=== PATIENT | female | born 1945 | race Caucasian/White ===

== ENCOUNTER → 2016-05-18 | Outpatient (CLI) | payer MEDICARE | END | disposition home or self-care (01) | LOC: PCVCCLINIC 11:37 | PROVIDERS: ATTEND Internal Medicine Cardiovascular Disease | DX: I25.10 Atherosclerotic heart disease of native coronary artery without angina pectoris (principal); E78.00 Pure hypercholesterolemia, unspecified; I10 Essential (primary) hypertension; I70.1 Atherosclerosis of renal artery | CPT/HCPCS: 80061; 93005; G0463 ==

== ENCOUNTER → 2017-01-12 | Outpatient (CLI) | payer MEDICARE ==
--- NOTE | 2017-01-12 18:38 | PCVCIMAG ---
EXAM: BILATERAL RENAL ULTRASOUND AND BILATERAL RENAL DUPLEX INDICATION: Hypertension FINDINGS: Right kidney: Length measures 9.1 cm. No hydronephrosis or extensive renal scarring. Right renal duplex: Adequate technical quality. Mild stenosis proximal renal artery stenosis. The aortic to renal artery ratio is 2.6. The renal vein is patent. Left kidney: Length measures 9.7 cm. No hydronephrosis or extensive renal scarring. 5.1 x 5.5 x 5.9 cm benign cyst mid lateral kidney. Left renal duplex: Adequate technical quality. No sonographic evidence of renal artery stenosis. The aortic to renal artery ratio is 1.7. The renal vein is patent. Bladder: No obvious abnormalities. IMPRESSION: 40-50% stenosis proximal right renal artery not felt to be critically flow-limiting. No significant left renal artery stenosis. LOC:[id number]
== END | disposition home or self-care (01) ==
LOC: PCVCIMAG 09:05
PROVIDERS: ATTEND Internal Medicine Cardiovascular Disease
DX: I70.1 Atherosclerosis of renal artery (principal); N28.1 Cyst of kidney, acquired; I25.10 Atherosclerotic heart disease of native coronary artery without angina pectoris; I10 Essential (primary) hypertension; Q24.8 Other specified congenital malformations of heart; E78.00 Pure hypercholesterolemia, unspecified; I73.9 Peripheral vascular disease, unspecified; Z79.82 Long term (current) use of aspirin; Z87.891 Personal history of nicotine dependence; Z88.0 Allergy status to penicillin
CPT/HCPCS: 76770; 80061; 93005; 93975; G0463

== ENCOUNTER → 2017-07-26 | Outpatient (CLI) | payer MEDICARE | END | disposition home or self-care (01) | LOC: PCVCIMAG 13:34 | DX: I25.10 Atherosclerotic heart disease of native coronary artery without angina pectoris (principal); I73.9 Peripheral vascular disease, unspecified; E78.00 Pure hypercholesterolemia, unspecified; I70.1 Atherosclerosis of renal artery; I10 Essential (primary) hypertension; Z87.891 Personal history of nicotine dependence; Z79.899 Other long term (current) drug therapy; Z79.82 Long term (current) use of aspirin | CPT/HCPCS: 80061; 93005; 93306; G0463 ==

== ENCOUNTER → 2018-03-22 | Outpatient (CLI) | payer MEDICARE ==
--- NOTE | 2018-03-22 13:05 | PCVCIMAG ---
EXAM: BILATERAL RENAL ULTRASOUND AND BILATERAL RENAL DUPLEX INDICATION: Hypertension FINDINGS: Right kidney: Length measures 8.9 cm. No hydronephrosis or extensive renal scarring. 1.0 cm benign cyst midpole. Right renal duplex: Adequate technical quality. No sonographic evidence of renal artery stenosis. The aortic to renal artery ratio is 0.8. The renal vein is patent. Left kidney: Length measures 10.2 cm. No hydronephrosis or extensive renal scarring. 5.5 x 6.0 cm benign cyst midpole. Left renal duplex: Adequate technical quality. No sonographic evidence of renal artery stenosis. The aortic to renal artery ratio is 1.7. The renal vein is patent. Bladder: No obvious abnormalities. IMPRESSION: No significant renal artery stenosis. No hydronephrosis bilaterally. LOC:[place] [id number]
== END | disposition home or self-care (01) ==
LOC: PCVCIMAG 09:18
PROVIDERS: ATTEND Internal Medicine Cardiovascular Disease
DX: I25.10 Atherosclerotic heart disease of native coronary artery without angina pectoris (principal); E78.00 Pure hypercholesterolemia, unspecified; I10 Essential (primary) hypertension; I70.1 Atherosclerosis of renal artery; I73.9 Peripheral vascular disease, unspecified; Z87.891 Personal history of nicotine dependence
CPT/HCPCS: 76770; 80061; 93005; 93975; G0463

== ENCOUNTER → 2018-11-29 | Outpatient (CLI) | payer MEDICARE ==
--- NOTE | 2018-11-29 20:22 | PCVCIMAG ---
EXAM: AORTOILIAC DUPLEX INDICATION: Peripheral arterial disease. FINDINGS: AORTA: Suprarenal aorta measures maximum diameter of 2.1 cm. There is not a fusiform infrarenal aortic aneurysm. The infrarenal aorta measures maximum diameter of 2.2 cm. No aortic stenosis. RIGHT COMMON ILIAC ARTERY: Maximum diameter is 1.6 cm. 60-70% stenosis. RIGHT EXTERNAL ILIAC ARTERY: No significant stenosis. LEFT COMMON ILIAC ARTERY: Maximum diameter is 1.0 cm. No significant stenosis. LEFT EXTERNAL ILIAC ARTERY: No significant stenosis. IMPRESSION: 60-70% stenosis right common iliac artery. No significant left iliac stenosis. LOC:OFFICE
== END | disposition home or self-care (01) ==
LOC: PCVCIMAG 09:58
PROVIDERS: ATTEND Internal Medicine Cardiovascular Disease
DX: I73.9 Peripheral vascular disease, unspecified (principal); I25.10 Atherosclerotic heart disease of native coronary artery without angina pectoris; I10 Essential (primary) hypertension; I70.1 Atherosclerosis of renal artery; R00.1 Bradycardia, unspecified; E78.00 Pure hypercholesterolemia, unspecified; Z95.820 Peripheral vascular angioplasty status with implants and grafts; Z88.8 Allergy status to other drugs, medicaments and biological substances; Z79.82 Long term (current) use of aspirin; Z79.899 Other long term (current) drug therapy; Z87.891 Personal history of nicotine dependence
CPT/HCPCS: 36415; 80061; 93005; 93978; G0463